=== PATIENT | male | born 1965 | race Caucasian/White ===

== ENCOUNTER 2017-04-11 07:16 | Day surgery (SDC) | payer BC ==
[2017-04-09 13:34] VITALS: BMI 37.3
[~2017-04-11 07:16] MED LIST: LACTATED RINGERS 1,000 ML IV SCH; LIDOCAINE 1% 20 ML VIAL (10MG/ML) FOR IV START INTRADERMA PRN
[2017-04-11 07:58] VITALS: TEMP 98
[2017-04-11] MEDS ORDERED: LACTATED RINGERS 1,000 ML IV ONE (08:00)
[2017-04-11 08:05] LABS: Glucose,Whole Blood 159 mg/dL (75-99)
[2017-04-11] MEDS ORDERED: LIDOCAINE 1% INJ 10MG/ML (20 ML MDV) ONE (08:06)
[2017-04-11] MEDS ORDERED: PROPOFOL 10 MG/ML 20 ML VIAL IV ONE (08:06)
--- NOTE | 2017-04-11 08:15 | P.GSHP ---
History of Present Illness H&P Date: 04/11/17 CHIEF COMPLAINT: Colon screen HISTORY OF PRESENT ILLNESS: The patient is a 51-year-old male who presents for colon screen. Lower endoscopy was offered for further evaluation and management. PAST MEDICAL HISTORY: Please see list. PAST SURGICAL HISTORY: Please see list. MEDICATIONS: Please see list. ALLERGIES: Please see list. SOCIAL HISTORY: No illicit drug use FAMILY HISTORY: No reports of Crohn disease or ulcerative colitis. REVIEW OF ORGAN SYSTEMS: CONSTITUTIONAL: No reports of fevers or chills. PHYSICAL EXAM: VITAL SIGNS: Stable GENERAL: Well-developed pleasant in no acute distress. HEENT: No scleral icterus. Extraocular movements grossly intact. Moist buccal mucosa. NECK: Supple without lymphadenopathy. CHEST: Unlabored respirations. Equal bilateral excursions. CARDIOVASCULAR: Regular rate and rhythm. Distal 2+ pulses. ABDOMEN: Soft, nontender, nondistended. MUSCULOSKELETAL: No clubbing, cyanosis, or edema. ASSESSMENT: 1. Colon screen. PLAN: 1. Recommend proceeding with a lower endoscopy Past Medical History Past Medical History: Diabetes Mellitus, Hyperlipidemia, Hypertension Additional Past Medical History / Comment(s): DIABETIC RETINOPATHY History of Any Multi-Drug Resistant Organisms: None Reported Additional Past Surgical History / Comment(s): detached retina Left eye, left cataract. Past Anesthesia/Blood Transfusion Reactions: No Reported Reaction Past Psychological History: No Psychological Hx Reported Smoking Status: Never smoker Past Alcohol Use History: None Reported Past Drug Use History: None Reported - Past Family History Mother Family Medical History: Diabetes Mellitus Father Family Medical History: Diabetes Mellitus Brother(s) Family Medical History: Diabetes Mellitus Sister(s) Family Medical History: Diabetes Mellitus Daughter(s) Family Medical History: Diabetes Mellitus Medications and Allergies Home Medications Medication Instructions Recorded Confirmed Type Aspirin [Adult Low Dose Aspirin EC] 81 mg PO DAILY 08/31/15 04/09/17 History Insulin Detemir [Levemir Flextouch] 50 units SQ HS 08/31/15 04/09/17 History Insulin Regular, Human [NovoLIN R] 0 unit SQ ACHS PRN 08/31/15 04/09/17 History Nebivolol HCl [Bystolic] 10 mg PO DAILY 08/31/15 04/09/17 History amLODIPine BES/OLMESARTAN MED 1 tab PO DAILY 08/31/15 04/09/17 History [David 10-40 mg Tablet] Chlorthalidone [Hygroton] 25 mg PO DAILY 04/09/17 04/09/17 History Insulin Aspart [NovoLOG Flexpen] 16 units SQ AC-TID 04/09/17 04/09/17 History Rosuvastatin [Crestor] 10 mg PO DAILY 04/09/17 04/09/17 History Spironolactone [Aldactone] 25 mg PO DAILY 04/09/17 04/09/17 History metFORMIN HCL [Glucophage] 500 mg PO BID 04/09/17 04/09/17 History Allergies Allergy/AdvReac Type Severity Reaction Status Date / Time No Known Allergies Allergy Verified 04/09/17 12:56 Surgical - Exam Vital Signs Temp Pulse Resp BP Pulse Ox 98.0 F 65 18 98/54 96 04/11/17 07:57 04/11/17 07:57 04/11/17 07:57 04/11/17 07:57 04/11/17 07:57 Results - Labs Abnormal Lab Results - Last 24 Hours (Table) 04/11/17 Range/Units 08:03 POC Glucose (mg/dL) 159 H (75-99) mg/dL
[2017-04-11 09:01] VITALS: RESP 16
--- NOTE | 2017-04-11 09:23 | P.PCN ---
Date of Procedure: 04/11/17 Description of Procedure: PREOPERATIVE DIAGNOSIS: Colonoscopy screening. POSTOPERATIVE DIAGNOSIS: Colonoscopy screening. Multiple tubular adenomas throughout the colon. Sigmoid diverticulosis OPERATION: Colonoscopy to the ileocecal valve and appendiceal orifice. Colonoscopy with multiple snare biopsies. Colonoscopy with multiple cold forceps biopsies. SURGEON: Kirsten Parson MD. ANESTHESIA: MAC. INDICATIONS: The patient is a 51-year-old male who presents for his first colonoscopy screening. Benefits and risks were described and informed consent was obtained. DESCRIPTION OF PROCEDURE: The patient had undergone Gatorade, MiraLAX and Dulcolax prep. He had been brought into the operating room and laid in the left lateral decubitus position. After adequate intravenous sedation, the rectum was examined with 2% lidocaine jelly. The prostate was smooth and without abnormality. No external hemorrhoids were encountered. The rectal tone was within normal limits. No lesions were palpated in the rectal vault. An Olympus colonoscope was advanced until the ileocecal valve and appendiceal orifice were clearly viewed. The prep was fair with visualization of the mucosal folds. The scope was removed with visualization of each mucosal fold. Scattered diverticulosis was encountered. Multiple colonic polyps were found and cold forcep biopsy or snare polypectomy. No evidence of focal colitis was found. Retroflexion of the scope demonstrated grade no prolapsed internal hemorrhoids active bleeding or inflammation. The colon was desufflated. The patient had tolerated the procedure well. Withdrawal time was over 6 minutes. FINDINGS: No arteriovenous malformations. Removal of 10 polyps from the proximal, mid transverse colon and descending colon: - Snare polypectomy 80 cm from the anal verge, 8 mm tubulovillous adenoma polyp. - Snare polypectomy 75 cm from the anal verge, 8 mm flat villous adenoma polyp. - Snare polypectomy 70 cm from the anal verge, 12 mm flat villous adenoma polyp. - Cold forceps biopsy mid transverse colon, 4 mm polyp. - Cold forceps biopsy ascending colon, 5 mm polyp. - Cold forceps biopsy cecum, 4 mm polyp. - Cold forceps biopsy at 55 cm from the anal verge, 4 mm polyp. - Cold forceps biopsy hepatic flexure, 4 mm polyp. - Cold forceps biopsy distal transverse colon, 3 mm polyp. - Cold forceps biopsy descending colon, 4 mm polyp. No focal colitis. Sigmoid diverticulosis. RECOMMENDATIONS: Given severity of tubular adenomas, recommend repeat colonoscopy 1 year, 2019. Plan - Discharge Summary New Discharge Prescriptions: No Action amLODIPine BES/OLMESARTAN MED [David 10-40 mg Tablet] 1 tab PO DAILY Insulin Detemir [Levemir Flextouch] 50 units SQ HS Nebivolol HCl [Bystolic] 10 mg PO DAILY Insulin Regular, Human [NovoLIN R] 0 unit SQ ACHS PRN PRN Reason: Blood Sugar - High Aspirin [Adult Low Dose Aspirin EC] 81 mg PO DAILY Insulin Aspart [NovoLOG Flexpen] 16 units SQ AC-TID Spironolactone [Aldactone] 25 mg PO DAILY metFORMIN HCL [Glucophage] 500 mg PO BID Chlorthalidone [Hygroton] 25 mg PO DAILY Rosuvastatin [Crestor] 10 mg PO DAILY Discharge Medication List Aspirin [Adult Low Dose Aspirin EC] 81 mg PO DAILY 08/31/15 [History] Insulin Detemir [Levemir Flextouch] 50 units SQ HS 08/31/15 [History] Insulin Regular, Human [NovoLIN R] 0 unit SQ ACHS PRN 08/31/15 [History] Nebivolol HCl [Bystolic] 10 mg PO DAILY 08/31/15 [History] amLODIPine BES/OLMESARTAN MED [David 10-40 mg Tablet] 1 tab PO DAILY 08/31/15 [ History] Chlorthalidone [Hygroton] 25 mg PO DAILY 04/09/17 [History] Insulin Aspart [NovoLOG Flexpen] 16 units SQ AC-TID 04/09/17 [History] Rosuvastatin [Crestor] 10 mg PO DAILY 04/09/17 [History] Spironolactone [Aldactone] 25 mg PO DAILY 04/09/17 [History] metFORMIN HCL [Glucophage] 500 mg PO BID 04/09/17 [History] Follow up Appointment(s)/Referral(s): Kirsten Parson MD [STAFF PHYSICIAN] - 04/24/17 Patient Instructions/Handouts: *[facility] - (Anesthesia) Endoscopy Discharge Instructions, Diverticulosis (GEN), Colorectal Polyps (DC), Diverticulosis Diet (GEN) Discharge Disposition: HOME SELF-CARE
[2017-04-11 09:43] VITALS: BP 117/65; PULSE 63
== END 2017-04-11 09:53 | disposition home or self-care (01) ==
LOC: ORWHC2ENDO 07:16
PROVIDERS: ATTEND Surgery Plastic and Reconstructive Surgery
DX: Z12.11 Encounter for screening for malignant neoplasm of colon (principal); D12.2 Benign neoplasm of ascending colon; D12.0 Benign neoplasm of cecum; D12.4 Benign neoplasm of descending colon; D12.3 Benign neoplasm of transverse colon; K63.5 Polyp of colon; K57.30 Diverticulosis of large intestine without perforation or abscess without bleeding; E78.5 Hyperlipidemia, unspecified; I10 Essential (primary) hypertension; E11.319 Type 2 diabetes mellitus with unspecified diabetic retinopathy without macular edema; Z79.84 Long term (current) use of oral hypoglycemic drugs; Z79.82 Long term (current) use of aspirin; Z79.4 Long term (current) use of insulin; Z79.899 Other long term (current) drug therapy
CPT/HCPCS: 88305; 45380; 45385; J2001; J2704